=== PATIENT | male | born 1985 | race Caucasian/White ===

== ENCOUNTER 2017-07-15 13:58 | Emergency (ER) | payer BC, OTHER ==
[~2017-07-15] VITALS: Ht 190.5 cm; Wt 83.9 kg
[2017-07-15 13:58] VITALS: BP 148/67
== END 2017-07-15 15:31 | disposition home or self-care (01) ==
LOC: ER 14:02
DX: S51.812A Laceration without foreign body of left forearm, initial encounter (principal); Z88.2 Allergy status to sulfonamides; Z90.89 Acquired absence of other organs; W26.0XXA Contact with knife, initial encounter; Y93.89 Activity, other specified; Y92.89 Other specified places as the place of occurrence of the external cause; Y99.8 Other external cause status
CPT/HCPCS: A4606; A6402; A6403; Z7610